=== PATIENT | male | born 1965 | race Caucasian/White ===

== ENCOUNTER 2018-02-03 11:23 | Inpatient (IN) | payer BC, OTHER ==
[~2018-02-03] VITALS: Ht 182.9 cm; Wt 121.9 kg
[2018-02-03] MEDS ORDERED: LIDOCAINE 2%HCL (LOCAL ANESTH.) INJ 20ML MDV ONE (11:33)
[2018-02-03] MEDS ORDERED: IODIXANOL 320MG/ML 100ML BTL IV ONE (11:34)
[2018-02-03] MEDS ORDERED: ANGIOMAX 250 MG VIAL IV ONE (11:36)
[2018-02-03] MEDS ORDERED: MIDAZOLAM HCL 1MG/1ML-2 ML VIAL ONE ×2 (11:36→12:14)
[2018-02-03] MEDS ORDERED: fentaNYL CITRATE 100 MCG/2 ML VL ONE ×2 (11:36→12:14)
[2018-02-03] MEDS ORDERED: SODIUM CHL 0.9% 50 ML ONE (11:37)
[2018-02-03 11:57] LABS: Basophils # (auto) 0 uL; Basophils % (auto) 0.6 % (0.0-2.0); Eosinophils # (auto) 0.1 uL; Eosinophils % (auto) 2.1 % (0.0-7.0); Hematocrit 44.5 % (41.0-53.0); Hemoglobin 15.6 g/dL (13.5-17.5); Lymphocytes # (auto) 1.7 uL; Lymphocytes % (auto) 24.5 % (10.0-50.0); Mean Corpuscular Hemoglobin 30.3 pg (28.0-32.0); Mean Corpuscular Hgb Conc. 34.9 g/dL (32.0-36.0); Mean Corpuscular Volume 86.8 fL (80.0-100.0); Monocytes # (auto) 0.9 uL; Monocytes % (auto) 12.9 % (0.0-12.0); Neutrophils # (auto) 4.1 uL; Neutrophils % (auto) 59.9 % (37.0-80.0); Nucleated Red Blood Cells % 0.1 %; Platelet Count (auto) 192 10^3/uL (140-450); Red Blood Cells 5.13 10^6/uL (4.5-5.90); Red Cell Distribution Width 13.3 % (11.8-14.3); White Blood Cell 6.9 10^3/uL (4.4-10.8)
[2018-02-03 12:11] LABS: INR 0.94 (0.9-1.15); Partial Thromboplastin Time 28.3 sec (23.78-33.04); Prothrombin Time 10.1 sec (9.27-12.13)
[2018-02-03 12:12] LABS: Albumin 3.7 g/dL (3.4-5.0); Calcium 8.7 mg/dL (8.5-10.1); Potassium 3.9 mmol/L (3.5-5.1)
[2018-02-03 12:19] LABS: BUN/Creatinine Ratio 10.3; Bilirubin, Total 0.8 mg/dL (0.2-1.0); Total Protein 7.1 g/dL (6.4-8.2)
[2018-02-03] MEDS ORDERED: TICAGRELOR 90 MG TAB ONE (12:30)
[2018-02-03] MEDS ORDERED: NITROGLYCERIN 0.4 MG SL TAB SL PRN (12:45)
[2018-02-03] MEDS ORDERED: MORPHINE SULFATE 4 MG/ML SYR/VIAL IV PRN (12:45)
[2018-02-03 13:15] VITALS: BP 140/90
[2018-02-03 15:50] VITALS: BP 131/74
[2018-02-03] MEDS ORDERED: PANT40TA2 PO (16:44)
[2018-02-03] MEDS ORDERED: ATOR20TA PO (16:44)
[2018-02-03] MEDS ORDERED: FLUO20CA19 PO (16:44)
[2018-02-03 17:57] LABS: Urine WBC None Seen /hpf (0 - 3)
[2018-02-03 18:13] LABS: Urine Bacteria NONE SEEN /hpf (None Seen); Urine Blood Negative /uL (Negative)
[2018-02-03 18:19] LABS: Urine Specific Gravity > 1.050 (1.001-1.035)
[2018-02-03] MEDS: MAGNESIUM SULFATE 1GM/100ML 100 ML IV SCH ×2 (18:33→20:40)
[2018-02-03] MEDS: HYDROcodone-ACET 10/325MG TAB PO PRN (19:11)
[2018-02-03 19:53] VITALS: BP 140/85
[2018-02-03] MEDS: CARVEDILOL 12.5 MG TAB PO SCH (22:48)
[2018-02-03] MEDS: ATORVASTATIN 20 MG TAB PO SCH (22:48)
[2018-02-03] MEDS: LISINOPRIL 10 MG TAB PO SCH (22:49)
[2018-02-03] MEDS: TICAGRELOR 90 MG TAB PO SCH (22:49)
[2018-02-03 23:44] VITALS: BP 111/64
[2018-02-04] VITALS (14 sets, daily range): BP systolic 11–122; BP diastolic 59–82
[2018-02-04 05:54] LABS: BUN/Creatinine Ratio 11.1; Calcium 8.5 mg/dL (8.5-10.1)
[2018-02-04] MEDS: HYDROcodone-ACET 10/325MG TAB PO PRN ×2 (06:53→14:54)
[2018-02-04] MEDS: ASPirin-EC 81 mg tab PO SCH (10:42)
[2018-02-04] MEDS: CARVEDILOL 12.5 MG TAB PO SCH ×2 (10:43→21:53)
[2018-02-04] MEDS: TICAGRELOR 90 MG TAB PO SCH ×2 (10:44→21:52)
[2018-02-04] MEDS: LISINOPRIL 10 MG TAB PO SCH (10:46)
[2018-02-04] MEDS: LISINOPRIL 5 MG TAB PO SCH (21:53)
[2018-02-04] MEDS: ATORVASTATIN 20 MG TAB PO SCH (21:53)
[2018-02-05 04:00] VITALS: BP 111/50
[2018-02-05 08:26] VITALS: BP 131/59
[2018-02-05] MEDS: ASPirin-EC 81 mg tab PO SCH (10:05)
[2018-02-05] MEDS: LISINOPRIL 5 MG TAB PO SCH (10:05)
[2018-02-05] MEDS: CARVEDILOL 12.5 MG TAB PO SCH (10:06)
[2018-02-05] MEDS: TICAGRELOR 90 MG TAB PO SCH ×2 (10:06→14:44)
[2018-02-05 11:50] VITALS: BP 113/61
[2018-02-05] MEDS ORDERED: LISI-275 PO (11:56)
[2018-02-05] MEDS ORDERED: ASP81EC PO (11:56)
[2018-02-05] MEDS ORDERED: CAR125T PO (11:56)
[2018-02-05] MEDS ORDERED: ATOR20TA50 PO (11:56)
[2018-02-05] MEDS ORDERED: CLOP75TA41 PO (11:56)
[2018-02-05 13:53] VITALS: BP 113/61
== END 2018-02-05 15:10 | disposition home or self-care (01) | DRG 246 ==
LOC: ER 11:28 → CATH 1 11:41 → TELE 12:48 → DOU IN ICU 13:15
PROVIDERS: ADMIT Internal Medicine; ATTEND Internal Medicine
PROC: 027034Z Dilation of Coronary Artery, One Artery with Drug-eluting Intraluminal Device, Percutaneous Approach (ICD-10-PCS; principal; 2018-02-03)
PROC: 4A023N7 Measurement of Cardiac Sampling and Pressure, Left Heart, Percutaneous Approach (ICD-10-PCS; 2018-02-03)
PROC: B2111ZZ Fluoroscopy of Multiple Coronary Arteries using Low Osmolar Contrast (ICD-10-PCS; 2018-02-03)
PROC: B2151ZZ Fluoroscopy of Left Heart using Low Osmolar Contrast (ICD-10-PCS; 2018-02-03)
DX: I21.3 ST elevation (STEMI) myocardial infarction of unspecified site (principal); I50.41 Acute combined systolic (congestive) and diastolic (congestive) heart failure; I42.9 Cardiomyopathy, unspecified; E66.9 Obesity, unspecified; I11.0 Hypertensive heart disease with heart failure; F32.9 Major depressive disorder, single episode, unspecified; F17.200 Nicotine dependence, unspecified, uncomplicated; E78.5 Hyperlipidemia, unspecified; I25.10 Atherosclerotic heart disease of native coronary artery without angina pectoris; K21.9 Gastro-esophageal reflux disease without esophagitis; Z68.36 Body mass index [BMI] 36.0-36.9, adult; Z82.49 Family history of ischemic heart disease and other diseases of the circulatory system
CPT/HCPCS: 36415; 71045; 80048; 80053; 80061; 81001; 83735; 84484; 85025; 85610; 85730; 86850; 86900; 86901; 87081; 93005; 99152; 99291; A6257; C1874; C1887; G0378; J2250; Q9967

== ENCOUNTER 2021-10-18 14:29 | Emergency (ER) | payer BC ==
[~2021-10-18] VITALS: Ht 177.8 cm; Wt 113.6 kg
[~2021-10-18 14:29] MED LIST: ASPI-394 PO; ATOR20TA50 PO; CAR125T PO; CLOP75TA70 PO; FLUO20CA19 PO; LISI-275 PO; PANT40TA2 PO
[2021-10-18 17:16] VITALS: BP 145/83
[2021-10-18] MEDS ORDERED: CYCL-837 PO (17:29)
[2021-10-18] MEDS ORDERED: NAP500T PO (17:29)
[2021-10-18] MEDS ORDERED: KETOROLAC TROMETH 60MG/2ML VIAL IM ONE (17:30)
== END 2021-10-18 18:03 | disposition home or self-care (01) ==
LOC: ER 14:29
DX: S46.911A Strain of unspecified muscle, fascia and tendon at shoulder and upper arm level, right arm, initial encounter (principal); I25.2 Old myocardial infarction; E78.5 Hyperlipidemia, unspecified; F17.210 Nicotine dependence, cigarettes, uncomplicated; Z90.49 Acquired absence of other specified parts of digestive tract; Z79.82 Long term (current) use of aspirin; Z79.01 Long term (current) use of anticoagulants; Z79.899 Other long term (current) drug therapy; X58.XXXA Exposure to other specified factors, initial encounter; Y93.89 Activity, other specified; Y92.89 Other specified places as the place of occurrence of the external cause; Y99.8 Other external cause status
CPT/HCPCS: 96372; 99283; J1885

== ENCOUNTER → 2022-12-29 | Outpatient (CLI) | payer BC ==
[~2022-12-29] MED LIST changes: +CYCL-837 PO; +NAP500T PO
[2022-12-29 07:22] LABS: Basophils # (auto) 0 10 ^3/uL (0-0.2); Basophils % (auto) 0.4 % (0.0-2.0); Eosinophils # (auto) 0.2 10 ^3/uL (0-0.8); Eosinophils % (auto) 3.6 % (0.0-7.0); Hematocrit 44.6 % (41.0-53.0); Hemoglobin 15.3 g/dL (13.5-17.5); Lymphocytes # (auto) 1.9 10 ^3/uL (0.4-5.4); Lymphocytes % (auto) 33.3 % (10.0-50.0); Mean Corpuscular Hemoglobin 29.2 pg (28.0-32.0); Mean Corpuscular Hgb Conc. 34.3 g/dL (32.0-36.0); Monocytes # (auto) 0.7 10 ^3/uL (0-1.3); Monocytes % (auto) 12.3 % (0.0-12.0); Neutrophils # (auto) 2.8 10 ^3/uL (1.6-8.6); Neutrophils % (auto) 50.4 % (37.0-80.0); Nucleated Red Blood Cells % 0.6 %; Red Blood Cells 5.25 10^6/uL (4.5-5.90); Red Cell Distribution Width 13.2 % (11.8-14.3); White Blood Cell 5.6 10^3/uL (4.4-10.8)
[2022-12-29 07:42] LABS: Alanine Aminotransferase 43 U/L (7-40); Albumin 4.5 g/dL (3.2-4.8); Alkaline Phosphatase 66 U/L (46-116); Anion Gap 7 (5-15); Aspartate Aminotransferase 28 U/L (13-40); BUN/Creatinine Ratio 8.7 (10.0-20.0); Blood Urea Nitrogen 9 mg/dL (9-23); Calcium 9.6 mg/dL (8.5-10.1); Carbon Dioxide 25 mmol/L (20-30); Chloride 106 mmol/L (98-107); Glucose 99 mg/dL (74-106); LDL Cholesterol 103 mg/dL (< 100); Potassium 4.6 mmol/L (3.5-5.1); Sodium 138 mmol/L (136-145); Triglycerides 111 mg/dL (< 150)
[2022-12-29 07:43] LABS: Bilirubin, Total 1.3 mg/dL (0.2-1.0); Cholesterol 166 mg/dL (< 200); HDL Cholesterol 44 mg/dL (40-59); Total Protein 7.2 g/dL (5.7-8.2)
== END | disposition home or self-care (01) ==
LOC: LAB 06:16
PROVIDERS: ATTEND Internal Medicine Rheumatology
DX: I10 Essential (primary) hypertension (principal); E78.5 Hyperlipidemia, unspecified
CPT/HCPCS: 36415; 80053; 80061; 83036; 84153; 85025

== ENCOUNTER → 2023-02-17 | Outpatient (CLI) | payer BC | END | disposition home or self-care (01) | LOC: XYW 08:33 | PROVIDERS: ATTEND Student in an Organized Health Care Education/Training Program | DX: I51.89 Other ill-defined heart diseases (principal); I25.9 Chronic ischemic heart disease, unspecified | CPT/HCPCS: 93306 ==

== ENCOUNTER → 2023-05-23 | Outpatient (CLI) | payer BC ==
[2023-05-23 06:51] LABS: Basophils # (auto) 0 10 ^3/uL (0-0.2); Basophils % (auto) 0.4 % (0.0-2.0); Eosinophils # (auto) 0.1 10 ^3/uL (0-0.8); Eosinophils % (auto) 2.2 % (0.0-7.0); Hemoglobin 15.2 g/dL (13.5-17.5); Lymphocytes # (auto) 2.1 10 ^3/uL (0.4-5.4); Lymphocytes % (auto) 31.6 % (10.0-50.0); Mean Corpuscular Hemoglobin 28.6 pg (28.0-32.0); Mean Corpuscular Hgb Conc. 33.1 g/dL (32.0-36.0); Mean Corpuscular Volume 86.2 fL (80.0-100.0); Monocytes # (auto) 0.6 10 ^3/uL (0-1.3); Monocytes % (auto) 9.6 % (0.0-12.0); Neutrophils # (auto) 3.8 10 ^3/uL (1.6-8.6); Neutrophils % (auto) 56.2 % (37.0-80.0); Nucleated Red Blood Cells % 0.2 %; Red Blood Cells 5.33 10^6/uL (4.5-5.90); Red Cell Distribution Width 13.7 % (11.8-14.3); White Blood Cell 6.7 10^3/uL (4.4-10.8)
[2023-05-23 07:03] LABS: Urine Bacteria NONE SEEN /hpf (None Seen); Urine Blood Negative /uL (Negative); Urine Clarity Clear (Clear); Urine Protein, UAD Negative (Negative); Urine Specific Gravity 1.011 (1.001-1.035); Urine Urobilinogen Normal (Negative); Urine WBC <1 /hpf (0 - 3); Urine pH 5.5 (5.0-8.0)
[2023-05-23 07:07] LABS: Urine Color Straw (Yellow)
[2023-05-23 07:41] LABS: Alanine Aminotransferase 34 U/L (7-40); Alkaline Phosphatase 66 U/L (46-116); Anion Gap 4 (5-15); BUN/Creatinine Ratio 10.8 (10.0-20.0); Blood Urea Nitrogen 12 mg/dL (9-23); Calcium 10.3 mg/dL (8.5-10.1); Carbon Dioxide 29 mmol/L (20-30); Chloride 106 mmol/L (98-107); Glucose 107 mg/dL (74-106); LDL Cholesterol 188 mg/dL (< 100); Potassium 4.6 mmol/L (3.5-5.1); Sodium 139 mmol/L (136-145); Triglycerides 113 mg/dL (< 150)
[2023-05-23 07:42] LABS: Albumin 4.3 g/dL (3.2-4.8); Aspartate Aminotransferase 23 U/L (13-40); Bilirubin, Direct 0.2 mg/dL (<0.3); Cholesterol 250 mg/dL (< 200)
[2023-05-23 07:43] LABS: Bilirubin, Total 0.7 mg/dL (0.2-1.0); HDL Cholesterol 47 mg/dL (40-59); Total Protein 6.8 g/dL (5.7-8.2)
[2023-05-23 08:45] LABS: Uric Acid 6.3 mg/dL (3.7-9.2)
== END | disposition home or self-care (01) ==
LOC: LAB 06:17
PROVIDERS: ATTEND Student in an Organized Health Care Education/Training Program
DX: I25.5 Ischemic cardiomyopathy (principal); I25.2 Old myocardial infarction; E78.00 Pure hypercholesterolemia, unspecified; E78.5 Hyperlipidemia, unspecified; I10 Essential (primary) hypertension
CPT/HCPCS: 36415; 80053; 80061; 80076; 81001; 83036; 84153; 84550; 85025

== ENCOUNTER → 2024-01-19 | Outpatient (CLI) | payer BC ==
[~2024-01-19] MED LIST changes: -CAR125T PO; +CARV-216 PO
== END | disposition home or self-care (01) ==
LOC: LAB 06:12
PROVIDERS: ATTEND Internal Medicine
DX: Z00.00 Encounter for general adult medical examination without abnormal findings (principal)
CPT/HCPCS: 36415; 82306; 83036

== ENCOUNTER → 2024-04-13 | Outpatient (CLI) | payer BC ==
[2024-04-13 06:58] LABS: Triglycerides 95 mg/dL (< 150)
[2024-04-13 07:00] LABS: HDL Cholesterol 49 mg/dL (40-59)
[2024-04-13 07:03] LABS: Cholesterol 214 mg/dL (< 200); LDL Cholesterol 163 mg/dL (< 100)
== END | disposition home or self-care (01) ==
LOC: LAB 06:13
PROVIDERS: ATTEND Internal Medicine
DX: E78.5 Hyperlipidemia, unspecified (principal)
CPT/HCPCS: 36415; 80061

== ENCOUNTER → 2024-12-28 | Outpatient (CLI) | payer BC | END | disposition home or self-care (01) | LOC: LAB 06:11 | PROVIDERS: ATTEND Internal Medicine | DX: Z12.5 Encounter for screening for malignant neoplasm of prostate (principal); Z12.11 Encounter for screening for malignant neoplasm of colon | CPT/HCPCS: 84153 ==